=== PATIENT | male | born 1980 | race Caucasian/White ===

== ENCOUNTER 2017-05-24 00:04 | Emergency (ER) | payer BC ==
[~2017-05-24 00:04] MED LIST: diphenhydrAMINE 50 MG/ML SDV ONE; methylPREDNISolone Sodium Succinate 125 MG/2 ML SDV ONE
[2017-05-24] MEDS ORDERED: methylPREDNISolone Sodium Succinate 125 MG/2 ML SDV IVPUSH ONE (00:15)
--- NOTE | 2017-05-24 00:20 | EDM.PDOC ---
ED HPI GENERAL MEDICAL PROBLEM - General Chief Complaint: Allergic Reaction Stated Complaint: tongue/lips swelling Time Seen by Provider: 05/24/17 00:10 Source of Information: Reports: Patient, Family History Limitations: Reports: No Limitations - History of Present Illness INITIAL COMMENTS - FREE TEXT/NARRATIVE: Patient presents to ED with concerns of a possible allergic reaction. States awoke at 2310 tonight having trouble breathing. [place] his tongue was thick and had mild dysphagia. States does have some seasonal allergies but never had a reaction like this before. Had hamburger and fresh tomatoes earlier which he has had many times before. Did cough frequently after first felt this with moderate phlegm production. Does feel somewhat better since it started. relates his speech is still slurred sounding from his norm. Did not note any wheezing. No hives. Onset: Today, Sudden Duration: Minutes: Location: Reports: Head Associated Symptoms: Reports: Cough, cough w sputum, Shortness of Breath. Denies: Chest Pain, Headaches, Nausea/Vomiting, Seizure, Weakness Bilateral Abdominal Pain Score (Numeric/FACES): 5 - Related Data Allergies Allergy/AdvReac Type Severity Reaction Status Date / Time No Known Allergies Allergy Verified 05/15/14 08:19 Home Meds: Home Meds diphenhydrAMINE [Benadryl] 50 mg PO DAILY PRN 05/15/14 [History] Past Medical History - Past Health History Medical/Surgical History: Denies Medical/Surgical History Social & Family History - Tobacco Use Second Hand Smoke Exposure: No - Alcohol Use Days Per Week of Alcohol Use: 7 Number of Drinks Per Day: 1 Total Drinks Per Week: 7 - Recreational Drug Use Recreational Drug Use: No ED ROS ALLERGIC REACTION - Review of Systems Review Of Systems: See Below Constitutional: Denies: Fever, Chills, Malaise, Weakness, Decreased Appetite HEENT: Reports: Eye Discharge (tearing), Throat Swelling. Denies: Ear Pain, Nose Pain, Throat Pain Respiratory: Reports: Shortness of Breath, Cough, Sputum Cardiovascular: Denies: Chest Pain, Edema, Lightheadedness Endocrine: Denies: Fatigue GI/Abdominal: Reports: Diarrhea. Denies: Abdominal Pain, Constipation, Nausea, Vomiting : Reports: No Symptoms Musculoskeletal: Reports: No Symptoms Skin: Reports: No Symptoms Neurological: Reports: No Symptoms ED EXAM GENERAL NO PERIP PULSE - Physical Exam Exam: See Below Exam Limited By: No Limitations General Appearance: Alert, WD/WN, No Apparent Distress Ears: Normal External Exam, Normal Canal, Hearing Grossly Normal Nose: Normal Inspection, Normal Mucosa, Nasal Drainage, Clear Rhinorrhea Throat/Mouth: Inflammation (uvular swelling noted). No: Normal Voice Head: Normocephalic Neck: Normal Inspection, Supple, Non-Tender Respiratory/Chest: No Respiratory Distress, Lungs Clear, Normal Breath Sounds Cardiovascular: Regular Rate, Rhythm Course - Vital Signs Last Recorded V/S: Last Vital Signs Temp 99.2 F 05/24/17 07:31 Pulse 92 05/24/17 07:31 Resp 18 05/24/17 07:31 BP 154/77 H 05/24/17 07:31 Pulse Ox 95 05/24/17 07:31 - Orders/Labs/Meds Orders: Active Orders 24 hr Category Date Time Status diphenhydrAMINE [Benadryl] Med 05/24/17 00:42 Active 50 mg IVPUSH Q4H PRN Medication Orders Diphenhydramine HCl (Benadryl) 50 mg IVPUSH Q4H PRN PRN Reason: Allergies Meds: Medications Generic Name Dose Route Start Last Admin Trade Name Freq PRN Reason Stop Dose Admin Diphenhydramine HCl 50 mg 05/24/17 00:42 Benadryl IVPUSH Q4H PRN Allergies Discontinued Medications Generic Name Dose Route Start Last Admin Trade Name Freq PRN Reason Stop Dose Admin Diphenhydramine HCl Confirm 05/24/17 00:01 05/24/17 00:23 Benadryl Administered 05/24/17 00:02 Not Given Dose 50 mg .ROUTE .STK-MED ONE Diphenhydramine HCl 50 mg 05/24/17 00:22 05/24/17 00:22 Benadryl IVPUSH 05/24/17 00:23 50 mg ONETIME ONE Administration Methylprednisolone Sodium Succinate Confirm 05/24/17 00:01 05/24/17 00:23 Solu-Medrol Administered 05/24/17 00:02 Not Given Dose 125 mg .ROUTE .STK-MED ONE Methylprednisolone Sodium Succinate 125 mg 05/24/17 00:15 05/24/17 00:23 Solu-Medrol IVPUSH 05/24/17 00:16 125 mg Q24H ONE Administration - Re-Assessments/Exams Free Text/Narrative Re-Assessment/Exam: 05/24/17 00:43 Patient does feel somewhat better. Oxygen sats 92%. Continues to still have slurred speech, mild uvular swelling but improved. Will keep in extended ER and observe. 05/24/17 08:19 Doing better this am. Will discharge home. Fill Epi-Pen. Inject as needed. Departure - Departure Time of Disposition: 08:20 Disposition: Home, Self-Care 01 Condition: Good Clinical Impression: Angioedema - Discharge Information Forms: ED Department Discharge Additional Instructions: 1. Rest 2. Push fluids 3. Epi-pen as needed 4. Medrol Dose Milad as directed 5. Follow up for any ongoing concern - My Orders Last 24 Hours: My Active Orders 05/24/17 00:42 diphenhydrAMINE [Benadryl] 50 mg IVPUSH Q4H PRN - Assessment/Plan Last 24 Hours: My Active Orders 05/24/17 00:42 diphenhydrAMINE [Benadryl] 50 mg IVPUSH Q4H PRN
[2017-05-24] MEDS ORDERED: diphenhydrAMINE 50 MG/ML SDV IVPUSH ONE (00:22)
[2017-05-24] MEDS ORDERED: diphenhydrAMINE 50 MG/ML SDV IVPUSH PRN (00:42)
[2017-05-24 07:36] VITALS: BP 154/77
== END 2017-05-24 08:36 | disposition home or self-care (01) ==
LOC: CC.ED 00:04
DX: T78.3XXA Angioneurotic edema, initial encounter (principal)
CPT/HCPCS: 96374; 96375; 99284; J1200; J2930